=== PATIENT | male | born 1955 | race African-American/Black ===

== ENCOUNTER 2020-03-19 14:45 | Outpatient (CLI) | payer OTHER, SELFPAY | END 2020-03-19 23:59 | disposition home or self-care (01) | LOC: MLB 14:45 → EDSTATUS 03-27 08:20 | PROVIDERS: ATTEND Internal Medicine Gastroenterology | DX: Z01.812 Encounter for preprocedural laboratory examination (principal); Z20.828 Contact with and (suspected) exposure to other viral communicable diseases; K76.9 Liver disease, unspecified; R19.7 Diarrhea, unspecified; K21.9 Gastro-esophageal reflux disease without esophagitis | CPT/HCPCS: U0003-CS ==

== ENCOUNTER 2020-05-22 08:08 | Day surgery (SDC) | payer OTHER ==
[~2020-05-22] VITALS: Ht 182.9 cm; Wt 79.4 kg
[2020-05-22] MEDS ORDERED: LIDOCAINE 2% 100 MG/5 ML UJET TP ONE (09:40)
[2020-05-22] MEDS ORDERED: MIDAZOLAM 5 MG/5 ML VIAL ONE (09:40)
[2020-05-22] MEDS ORDERED: fentaNYL citrate 0.05 MG/ML VIAL ONE (09:40)
[2020-05-22] MEDS ORDERED: MIDAZOLAM 2 MG/2 ML VIAL IVP ONE (11:45)
[2020-05-22] MEDS ORDERED: fentaNYL citrate 0.05 MG/ML VIAL IVP ONE (11:45)
== END 2020-05-22 11:40 | disposition home or self-care (01) ==
LOC: MDS 08:08 → MFCC 08:08 → MDS 11:40
PROVIDERS: ATTEND Internal Medicine Gastroenterology
DX: R19.7 Diarrhea, unspecified (principal); D12.3 Benign neoplasm of transverse colon; K57.30 Diverticulosis of large intestine without perforation or abscess without bleeding; K21.00 Gastro-esophageal reflux disease with esophagitis, without bleeding; K70.9 Alcoholic liver disease, unspecified; Z85.038 Personal history of other malignant neoplasm of large intestine; Z79.899 Other long term (current) drug therapy
CPT/HCPCS: 43235; 45380; 45385; 87426; 88305; J2250; J3010